=== PATIENT | female | born 2000 | race Caucasian/White ===

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

== ENCOUNTER 2024-01-08 07:25 | Emergency (ER) | payer BC ==
--- NOTE | 2024-01-08 07:37 | ED ---
Lower Extremity Injury HPI - General Chief Complaint: Extremity Injury, Lower Stated Complaint: Fall Time Seen by Provider: 01/08/24 07:35 Source: patient, RN notes reviewed Mode of arrival: wheelchair Limitations: no limitations - History of Present Illness Initial Comments: 23-year-old female presented to ER with chief complaint of a fall. Patient sta shakira she was walking her dog outside to use the restroom when the dog noticed people walking by and started to pull on the leash. She reports she excellently tripped down about 4 steps. She states her left ankle twisted and she heard a crack. She denies any other injuries, head injury, loss of consciousness or blood thinner use. She has not taken anything for pain at this time. No other complaints. - Related Data Allergies Allergy/AdvReac Type Severity Reaction Status Date / Time No Known Allergies Allergy Verified 01/08/24 07:30 Review of Systems ROS Statement: Those systems with pertinent positive or pertinent negative responses have been documented in the HPI. ROS Other: All systems not noted in ROS Statement are negative. Past Medical History Past Medical History: No Reported History History of Any Multi-Drug Resistant Organisms: None Reported Past Surgical History: No Surgical Hx Reported Past Psychological History: No Psychological Hx Reported Smoking Status: Never smoker Past Alcohol Use History: Occasional Past Drug Use History: Marijuana General Exam Limitations: no limitations General appearance: alert, in no apparent distress Head exam: Present: atraumatic, normocephalic, normal inspection Respiratory exam: Present: normal lung sounds bilaterally. Absent: respiratory distress, wheezes, rales, rhonchi, stridor Cardiovascular Exam: Present: regular rate, normal rhythm, normal heart sounds. Absent: systolic murmur, diastolic murmur, rubs, gallop, clicks Extremities exam: Present: tenderness (Left lateral malleolus. Edema to lateral left malleolus. 2+ dorsalis pedis pulse. Sensation intact. ) Skin exam: Present: warm, dry, intact, normal color. Absent: rash Course Vital Signs 01/08/24 07:26 Temperature 99.3 F Pulse Rate 83 Respiratory 16 Rate Blood Pressure 130/80 O2 Sat by Pulse 99 Oximetry Medical Decision Making - Medical Decision Making Was pt. sent in by a medical professional or institution (, PA, EPIC PROFESSIONAL, urgent care, hospital, or senior living...) When possible be specific @ -No Did you speak to anyone other than the patient for history (EMS, parent, family, police, friend...)? What history was obtained from this source @ -No Did you review nursing and triage notes (agree or disagree)? Why? @ -I reviewed and agree with nursing and triage notes Were old charts reviewed (outside hosp., previous admission, EMS record, old EKG, old radiological studies, urgent care reports/EKG's, senior living records)? Report findings @ -No old charts were reviewed Differential Diagnosis (chest pain, altered mental status, abdominal pain women, abdominal pain men, vaginal bleeding, weakness, fever, dyspnea, syncope, headache, dizziness, GI bleed, back pain, seizure, CVA, palpatations, mental health, musculoskeletal)? @ -Differential Musculoskeletal: Muscular strain, contusion, ligament sprain, fracture, arthritis, septic arthritis, bursitis, cellulitis, muscle spasm, nerve compression, DVT, arterial occlusion, herpes zoster, electrolyte abnormality, tumor.... This is not meant to be in all inclusive list EKG interpreted by me (3pts min.). @ -None X-rays interpreted by me (1pt min.). @ -Left ankle x-ray interpreted by me negative for acute fractures or dislocations. CT interpreted by me (1pt min.). @ -None done U/S interpreted by me (1pt. min.). @ -None done What testing was considered but not performed or refused? (CT, X-rays, U/S, labs)? Why? @ -None What meds were considered but not given or refused? Why? @ -None Did you discuss the management of the patient with other professionals (professionals i.e. , PA, EPIC PROFESSIONAL, lab, RT, psych nurse, social worker school, clay washer, teacher, vessel traffic officer, supervisor case loading)? Give summary @ -No Was smoking cessation discussed for >3mins.? @ -No Was critical care preformed (if so, how long)? @ -No Were there social determinants of health that impacted care today? How? (Homelessness, low income, unemployed, alcoholism, drug addiction, transportation, low edu. Level, literacy, decrease access to med. care, snf, rehab)? @ -No Was there de-escalation of care discussed even if they declined (Discuss DNR or withdrawal of care, Hospice)? DNR status @ -No What co-morbidities impacted this encounter? (DM, HTN, Smoking, COPD, CAD, Cancer, CVA, ARF, Chemo, Hep., AIDS, mental health diagnosis, sleep apnea, morbid obesity)? @ -None Was patient admitted / discharged? Hospital course, mention meds given and route, prescriptions, significant lab abnormalities, going to OR and other pertinent info. @ -Discharge. 23-year-old female presented to ER with chief complaint of left ankle injury. History and physical exam completed. Vitals stable. Patient no signs of acute distress and nontoxic-appearing. Mild edema and tenderness to left lateral malleolus. Left lower extremity neurovascular intact. No erythema or bruising. Patient received IM Toradol for pain control in the ER, with improvement. X-rays obtained negative for acute osseous process. Patient p laced in an Luis wrap and advised to follow-up with orthopedics, referral given. Advised [id number] Tylenol and Motrin for pain control. Return parameters discussed. Patient discharged in stable condition. Patient verbally expressed understanding and agreement with care plan. Case discussed with ED attending, Dr. Gee. Undiagnosed new problem with uncertain prognosis? @ -No Drug Therapy requiring intensive monitoring for toxicity (Heparin, Nitro, Insulin, Cardizem)? @ -No Were any procedures done? @ -No Diagnosis/symptom? @ -Ankle sprain Acute, or Chronic, or Acute on Chronic? @ -Acute Uncomplicated (without systemic symptoms) or Complicated (systemic symptoms)? @ -Uncomplicated Side effects of treatment? @ -No Exacerbation, Progression, or Severe Exacerbation? @ -No Poses a threat to life or bodily function? How? (Chest pain, [place], [place], pneumonia, PE, COPD, DKA, ARF, appy, cholecystitis, CVA, Diverticulitis, Homicidal, Suicidal, threat to staff... and all critical care pts) @ -No - Radiology Data Radiology results: report reviewed, image reviewed Disposition Clinical Impression: Ankle sprain Disposition: HOME SELF-CARE Condition: Stable Instructions (If sedation given, give patient instructions): Ankle Sprain (ED) Additional Instructions: Please follow-up with orthopedics. You may take [id number] Tylenol and Motrin for pain control. Continue to rest, ice and elevate. Return to the ER for new or worsening concerns. Is patient prescribed a controlled substance at d/c from ED?: No Referrals: Gayle Summers PAC [REFERRING] - 1-2 days Doc Woodson DO [Doctor of Osteopathic Medicine] - 1-2 days Time of Disposition: 08:29
[2024-01-08] MEDS: KETOROLAC 15 MG/ML 1 ML VIAL IM STA (07:40)
--- NOTE | 2024-01-08 08:18 | XR ---
EXAMINATION TYPE: XR ankle complete LT DATE OF EXAM: 01/08/2024 7:55 AM CLINICAL INDICATION:Female, 23 years old with history of fall; COMPARISON: None TECHNIQUE: XR ankle complete LT; ankle is imaged in frontal, lateral and oblique projections. FINDINGS: There is no evidence of acute osseous pathology. No evidence of subluxation or dislocation. Kager's fat pad is intact. Mild soft tissue swelling around the ankle. No radiopaque foreign bodies are ident ified. Multifocal degeneration changes throughout the joints of the foot with osteophyte formation an d joint space narrowing. Suspected distal tibia bone island with sclerotic focus medially. IMPRESSION: 1. No evidence of acute fracture. 2. Subcutaneous swelling around the ankle likely secondary to underlying soft tissue injury.
[2024-01-08 09:15] VITALS: BP 128/76; PULSE 78; RESP 18; TEMP 97.9
== END 2024-01-08 08:41 | disposition home or self-care (01) ==
LOC: SUPCPDRO 07:25 → EC 07:25
DX: S93.402A Sprain of unspecified ligament of left ankle, initial encounter (principal); X50.1XXA Overexertion from prolonged static or awkward postures, initial encounter; Y93.01 Activity, walking, marching and hiking
CPT/HCPCS: 73610; 99283; 96372; J1885